=== PATIENT | female | born 1955 | race Caucasian/White ===

== ENCOUNTER 2017-11-25 07:32 | Day surgery (SDC) | payer BC ==
[~2017-11-25] VITALS: Ht 165.1 cm; Wt 77.3 kg
[~2017-11-25 07:32] MED LIST: ALBUTEROL17 GM IH; ALLEGRA; ALLEGRA ALLERG180 MG PO; AMBIEN10 MG PO; ASMANEX TW200 MICRO1 IH; BENEFIBER236 GM PO; CALCIUM 500 MG1 EACH PO; CYANOCOBALAM1000 MCG PO; FLONASE SENSIM9.9 ML BOTH NARES; FLOVENT DISKUS1 DIS2 IH; IRON325 M1 PO; MAGNESIUM 300300 MG PO; METAMUCIL CAPSU1 CAP PO; POTASSIUM CHLO20 ME2 PO; PRILOSEC20 MG PO; PROTONIX40 MG PO; SIMVASTATIN; SINGULAIR10 MG PO; ULTRACET1 TABLET PO; VITAMIN D31000 UNI2 PO; ZOCOR20 MG PO
[2017-11-25 07:55] VITALS: BP 144/63
[2017-11-25] MEDS ORDERED: NORCO 5/3251 TABLET PO (11:42)
[2017-11-25 12:48] VITALS: BP 117/62
[2017-11-25 15:34] VITALS: BP 118/59
[2017-11-25 15:48] VITALS: BP 118/59
== END 2017-11-25 18:24 | disposition home or self-care (01) ==
LOC: SDC 07:32 → 2EAST 07:33 → SDC 08:46 → 2EAST 18:24
PROVIDERS: Surgery
DX: K80.10 Calculus of gallbladder with chronic cholecystitis without obstruction (principal); K66.0 Peritoneal adhesions (postprocedural) (postinfection); Z98.84 Bariatric surgery status; J45.909 Unspecified asthma, uncomplicated; K21.9 Gastro-esophageal reflux disease without esophagitis; M19.90 Unspecified osteoarthritis, unspecified site; N28.9 Disorder of kidney and ureter, unspecified; G47.00 Insomnia, unspecified; Z87.442 Personal history of urinary calculi; Z88.6 Allergy status to analgesic agent
CPT/HCPCS: 74300; 82948; 88304; G0378; J0131; J1100; J1170; J1885; J2250; J7120; Q0175; S0020; S0074

== ENCOUNTER 2018-03-10 07:50 | Emergency (ER) | payer BC ==
[~2018-03-10] VITALS: Ht 162.6 cm; Wt 70.2 kg
[~2018-03-10 07:50] MED LIST changes: +NORCO 5/3251 TABLET PO
[2018-03-10 07:54] VITALS: BP 146/70
== END 2018-03-10 08:48 | disposition home or self-care (01) ==
LOC: EME 07:50
DX: R53.81 Other malaise (principal); R11.0 Nausea; R53.1 Weakness; R19.7 Diarrhea, unspecified; Z53.21 Procedure and treatment not carried out due to patient leaving prior to being seen by health care provider